=== PATIENT | female | born 1965 | race Caucasian/White ===

== ENCOUNTER 2017-09-12 08:49 | Inpatient (IN) | payer MEDICARE, MEDICAID ==
[2017-09-07 11:38] LABS: BASOPHILS % (AUTO) 0.8 % (0-1); EOSINOPHILS # (AUTO) 0.1 X10'3 (0-0.9); EOSINOPHILS % (AUTO) 2.3 % (0-6); LYMPHOCYTES # (AUTO) 1.8 X10'3 (1.1-4.8); LYMPHOCYTES % (AUTO) 33.3 % (21-51); MEAN CORPUSCULAR HEMOGLOBIN 29.8 PG (27.0-31.0); MEAN CORPUSCULAR HGB CONC 34.8 % (33.0-36.5); MEAN CORPUSCULAR VOLUME 85.5 FL (78-98); MONOCYTES # (AUTO) 0.5 X10'3 (0-0.9); MONOCYTES % (AUTO) 8.5 % (2-12); NEUTROPHILS % (AUTO) 55.1 % (42-75); PRE OP HEMOGLOBIN 13.6 g/dL (12.0-16.0); PRE OP PLATELET COUNT 243 X10'3 (140-440); RED BLOOD COUNT 4.56 X10'6 (4.20-5.60); RED CELL DISTRIBUTION WIDTH 13.3 % (11.5-14.5)
[2017-09-07 11:54] LABS: ALBUMIN 3.2 G/DL (3.4-5.0); ALBUMIN/GLOBULIN RATIO 0.8 (1.1-1.5); ALKALINE PHOSPHATASE 108 IU/L (46-116); BLOOD UREA NITROGEN 7 MG/DL (7-18); BUN/CREATININE RATIO 10.8 (6.6-38.0); CALCIUM 8.4 MG/DL (8.5-10.1); CHLORIDE 107 MMOL/L (99-107); CREATININE 0.65 MG/DL (0.40-0.90); PRE OP ALT 25 U/L (30-65); PRE OP ANION GAP 9 (8-16); PRE OP AST 23 U/L (10-37); PRE OP BILIRUB, TOTAL 0.6 MG/DL (0.0-1.0); PRE OP GLUCOSE 99 MG/DL (70-104); PRE OP POTASSIUM 3.7 MMOL/L (3.4-5.1); PRE OP SODIUM 143 MMOL/L (135-145); TOTAL CARBON DIOXIDE 27.2 MMOL/L (24-32); TOTAL PROTEIN 7.1 G/DL (6.4-8.2); eGFR > 90 ML/MIN
[2017-09-12] VITALS (17 sets, daily range): BP systolic 76–140; BP diastolic 40–84
[~2017-09-12] VITALS: Ht 157.5 cm; Wt 107.0 kg
[~2017-09-12 08:49] MED LIST: ATOR10TA70 PO; BISA5TAB10 PO; BUPR300T7 PO; CALC-437 PO; CARI-1 PO; CHOL100025 PO; Cefazolin 2GM/50ML dext iso,osmotic IVPB IV ONE; FERR325T29 PO; HYDR-3973 PO; MULT1TAB74 PO; NAPR-996 PO; OMEP40CA37 PO; TRAZ-143 PO; famotidine 20mg tablet PO ONE; ringers solution, lacted 1,000 ML IV SCH; tranexamic acid inj. 1,000 MG in normal saline 100ml IV soln 90 ML IV ONE; vancomycin inj 1,500 MG in normal saline 300ml IV soln IV ONE
[2017-09-12] MEDS ORDERED: ceFAZolin 1000mg inj ONE (08:55)
[2017-09-12] MEDS ORDERED: tetracaine 1% (10mg/ml) pres. free inj. ONE (10:15)
[2017-09-12] MEDS ORDERED: ROPIVAcaine 0.5% (5mg/ml) 30ml vial ONE (10:15)
[2017-09-12] MEDS ORDERED: fentaNYL/PF 50MCG/1 ML 2ML syringe ONE (10:16)
[2017-09-12] MEDS ORDERED: MIDAZolam 1mg/ml 10ml vial ONE (10:16)
[2017-09-12] MEDS ORDERED: dexamethasone sod phosphate 4mg/ml inj. ONE (10:29)
[2017-09-12] MEDS ORDERED: morphine 4 MG/ML inj SYRINge IV PRN ×2 (10:55)
[2017-09-12] MEDS ORDERED: labetalol 20mg/4ml (5mg/ml) syringe IV PRN (10:55)
[2017-09-12] MEDS ORDERED: fentaNYL/PF 50MCG/1 ML 2ML syringe IV PRN ×2 (10:55)
[2017-09-12] MEDS ORDERED: hydrALAZINE 20mg/ml inj. IV PRN (10:55)
[2017-09-12] MEDS ORDERED: ondansetron/PF 4mg/2ml inj IV PRN ×3 (10:55→12:40)
[2017-09-12] MEDS ORDERED: ringers solution, lacted 1,000 ML IV SCH (10:55)
[2017-09-12] MEDS ORDERED: diphenhydrAMINE 50 mg/ml inj IV PRN (11:00)
[2017-09-12] MEDS ORDERED: bisacodyl 10mg suppository rectal RC PRN (12:40)
[2017-09-12] MEDS ORDERED: magnesium hydroxide 30ml (MOM) UD suspension PO PRN (12:40)
[2017-09-12] MEDS ORDERED: acetaminophen 325mg tablet PO PRN (12:40)
[2017-09-12] MEDS ORDERED: HYDROmorphone inj. 0.5 MG/0.5 ML DISP.SYRIN IV PRN (12:40)
[2017-09-12] MEDS ORDERED: diphenhydrAMINE 25mg capsule PO PRN ×2 (12:40)
[2017-09-12] MEDS ORDERED: HYDROcodone/acetaminophen 10/325mg tab PO PRN (12:40)
[2017-09-12] MEDS: bisacodyl 5mg tablet.DR PO SCH ×2 (13:00→20:18)
[2017-09-12] MEDS ORDERED: tranexamic acid inj. 1,000 MG in normal saline 100ml IV soln 100 ML IV ONE (16:00)
[2017-09-12] MEDS: ceFAZolin 1GM/D5W- ADD-VANTAGE 50 ML IV SCH ×2 (16:39→23:42)
[2017-09-12] MEDS: potassium Cl 20mEq in NS 1,000 ML IV SCH (16:39)
[2017-09-12] MEDS: aspirin 325mg tablet PO SCH (17:30)
[2017-09-12] MEDS ORDERED: vancomycin/NS 1 GM ADD-VANTAGE 250 ML IV SCH (20:00)
[2017-09-12] MEDS: traZODone 50mg tablet PO SCH (20:17)
[2017-09-12] MEDS: sennosides 8.6mg tablet PO SCH (20:18)
[2017-09-13 02:00] VITALS: BP 107/62
[2017-09-13] MEDS: potassium Cl 20mEq in NS 1,000 ML IV SCH ×3 (05:04→18:34)
[2017-09-13] MEDS: HYDROcodone/acetaminophen 10/325mg tab PO PRN ×4 (05:09→23:52)
[2017-09-13 05:58] LABS: BASOPHILS % (AUTO) 0 % (0-1); EOSINOPHILS % (AUTO) 0 % (0-6); HEMATOCRIT 33.7 % (35.0-45.0); HEMOGLOBIN 11.4 g/dl (12.0-16.0); LYMPHOCYTES % (AUTO) 11.4 % (21-51); MEAN CORPUSCULAR HEMOGLOBIN 29.5 PG (27.0-31.0); MEAN CORPUSCULAR HGB CONC 33.9 % (33.0-36.5); MEAN CORPUSCULAR VOLUME 86.9 FL (78-98); MEAN PLATELET VOLUME 8.5 FL (7.4-10.4); NEUTROPHILS # (AUTO) 7.1 X10'3 (1.8-7.7); NEUTROPHILS % (AUTO) 77.6 % (42-75); PLATELET COUNT 197 X10'3 (140-440); RED BLOOD COUNT 3.87 X10'6 (4.20-5.60); RED CELL DISTRIBUTION WIDTH 13.6 % (11.5-14.5); WHITE BLOOD COUNT 9.2 X10'3 (4.5-11.0)
[2017-09-13 06:27] LABS: ALANINE AMINOTRANSFERASE 25 U/L (12-78); ALBUMIN 2.7 G/DL (3.4-5.0); ALBUMIN/GLOBULIN RATIO 0.8 (1.1-1.5); ALKALINE PHOSPHATASE 80 IU/L (46-116); ANION GAP 7 (8-16); ASPARTATE AMINO TRANSFERASE 17 U/L (10-37); BILIRUBIN,TOTAL 0.5 MG/DL (0.1-1.0); BLOOD UREA NITROGEN 15 MG/DL (7-18); BUN/CREATININE RATIO 11.9 (6.6-38.0); CALCIUM 7.6 MG/DL (8.5-10.1); CHLORIDE 105 MMOL/L (99-107); CREATININE 1.26 MG/DL (0.40-0.90); GLUCOSE 134 MG/DL (70-104); POTASSIUM 5.1 MMOL/L (3.5-5.1); SODIUM 136 MMOL/L (135-145); TOTAL CARBON DIOXIDE 23.7 MMOL/L (24-32); TOTAL PROTEIN 6.3 G/DL (6.4-8.2); eGFR 44 ML/MIN
[2017-09-13 07:00] VITALS: BP 92/51
[2017-09-13] MEDS: aspirin 325mg tablet PO SCH ×2 (07:24→16:39)
[2017-09-13] MEDS: bisacodyl 5mg tablet.DR PO SCH ×3 (07:32→20:36)
[2017-09-13] MEDS: buPROPion SR 150mg tablet PO SCH ×2 (07:32→20:36)
[2017-09-13] MEDS: pantoprazole 40mg Tablet.DR PO SCH (07:32)
[2017-09-13 12:32] VITALS: BP 89/58
[2017-09-13 18:00] VITALS: BP 127/76
[2017-09-13] MEDS: traZODone 50mg tablet PO SCH (20:35)
[2017-09-13] MEDS: sennosides 8.6mg tablet PO SCH (20:36)
[2017-09-13 22:00] VITALS: BP 108/62
[2017-09-14 05:00] VITALS: BP 123/67
[2017-09-14 05:25] LABS: BASOPHILS % (AUTO) 0.3 % (0-1); EOSINOPHILS # (AUTO) 0.1 X10'3 (0-0.9); EOSINOPHILS % (AUTO) 1.3 % (0-6); HEMATOCRIT 33.5 % (35.0-45.0); HEMOGLOBIN 11.4 g/dl (12.0-16.0); LYMPHOCYTES # (AUTO) 1.4 X10'3 (1.1-4.8); LYMPHOCYTES % (AUTO) 16.6 % (21-51); MEAN CORPUSCULAR HEMOGLOBIN 29.6 PG (27.0-31.0); MEAN CORPUSCULAR HGB CONC 33.9 % (33.0-36.5); MEAN CORPUSCULAR VOLUME 87.2 FL (78-98); MEAN PLATELET VOLUME 8.5 FL (7.4-10.4); MONOCYTES # (AUTO) 1.4 X10'3 (0-0.9); MONOCYTES % (AUTO) 16.1 % (2-12); NEUTROPHILS # (AUTO) 5.6 X10'3 (1.8-7.7); NEUTROPHILS % (AUTO) 65.7 % (42-75); PLATELET COUNT 178 X10'3 (140-440); RED BLOOD COUNT 3.84 X10'6 (4.20-5.60); RED CELL DISTRIBUTION WIDTH 13.3 % (11.5-14.5); WHITE BLOOD COUNT 8.6 X10'3 (4.5-11.0)
[2017-09-14] MEDS: HYDROcodone/acetaminophen 10/325mg tab PO PRN ×3 (05:32→16:36)
[2017-09-14 06:00] LABS: ALANINE AMINOTRANSFERASE 17 U/L (12-78); ALBUMIN 2.5 G/DL (3.4-5.0); ALBUMIN/GLOBULIN RATIO 0.6 (1.1-1.5); ALKALINE PHOSPHATASE 85 IU/L (46-116); ANION GAP 7 (8-16); ASPARTATE AMINO TRANSFERASE 13 U/L (10-37); BILIRUBIN,TOTAL 0.6 MG/DL (0.1-1.0); BLOOD UREA NITROGEN 10 MG/DL (7-18); BUN/CREATININE RATIO 13.5 (6.6-38.0); CALCIUM 8.2 MG/DL (8.5-10.1); CHLORIDE 105 MMOL/L (99-107); CREATININE 0.74 MG/DL (0.40-0.90); GLUCOSE 117 MG/DL (70-104); POTASSIUM 4.5 MMOL/L (3.5-5.1); SODIUM 137 MMOL/L (135-145); TOTAL CARBON DIOXIDE 24.8 MMOL/L (24-32); TOTAL PROTEIN 6.6 G/DL (6.4-8.2); eGFR 82 ML/MIN
[2017-09-14] MEDS: pantoprazole 40mg Tablet.DR PO SCH (08:00)
[2017-09-14] MEDS: bisacodyl 5mg tablet.DR PO SCH ×3 (08:36→20:29)
[2017-09-14] MEDS: aspirin 325mg tablet PO SCH ×2 (08:36→17:30)
[2017-09-14] MEDS: buPROPion SR 150mg tablet PO SCH ×2 (08:36→20:27)
[2017-09-14] MEDS: sennosides 8.6mg tablet PO SCH (08:36)
[2017-09-14 10:00] VITALS: BP 124/77
[2017-09-14 18:00] VITALS: BP 101/61
[2017-09-14] MEDS ORDERED: aspirin 81mg tab.chew PO SCH (20:25)
[2017-09-14] MEDS: traZODone 50mg tablet PO SCH (20:27)
[2017-09-14 23:00] VITALS: BP 132/68
[2017-09-15] MEDS: HYDROcodone/acetaminophen 10/325mg tab PO PRN ×4 (00:26→13:06)
[2017-09-15 05:32] LABS: BASOPHILS % (AUTO) 0.4 % (0-1); EOSINOPHILS # (AUTO) 0.1 X10'3 (0-0.9); EOSINOPHILS % (AUTO) 1.6 % (0-6); HEMOGLOBIN 11.1 g/dl (12.0-16.0); LYMPHOCYTES # (AUTO) 1.6 X10'3 (1.1-4.8); LYMPHOCYTES % (AUTO) 18.1 % (21-51); MEAN CORPUSCULAR HGB CONC 34.5 % (33.0-36.5); MEAN CORPUSCULAR VOLUME 87.1 FL (78-98); MEAN PLATELET VOLUME 8.6 FL (7.4-10.4); MONOCYTES % (AUTO) 11.7 % (2-12); NEUTROPHILS # (AUTO) 6.1 X10'3 (1.8-7.7); NEUTROPHILS % (AUTO) 68.2 % (42-75); PLATELET COUNT 194 X10'3 (140-440); RED BLOOD COUNT 3.68 X10'6 (4.20-5.60); RED CELL DISTRIBUTION WIDTH 13.8 % (11.5-14.5); WHITE BLOOD COUNT 8.9 X10'3 (4.5-11.0)
[2017-09-15 06:00] VITALS: BP 111/73
[2017-09-15 06:08] LABS: ALANINE AMINOTRANSFERASE 14 U/L (12-78); ALBUMIN 2.4 G/DL (3.4-5.0); ALBUMIN/GLOBULIN RATIO 0.6 (1.1-1.5); ALKALINE PHOSPHATASE 88 IU/L (46-116); ANION GAP 6 (8-16); ASPARTATE AMINO TRANSFERASE 9 U/L (10-37); BILIRUBIN,TOTAL 0.6 MG/DL (0.1-1.0); BLOOD UREA NITROGEN 6 MG/DL (7-18); CALCIUM 8.5 MG/DL (8.5-10.1); CHLORIDE 104 MMOL/L (99-107); CREATININE 0.75 MG/DL (0.40-0.90); GLUCOSE 108 MG/DL (70-104); POTASSIUM 4.2 MMOL/L (3.5-5.1); SODIUM 139 MMOL/L (135-145); TOTAL CARBON DIOXIDE 28.7 MMOL/L (24-32); TOTAL PROTEIN 6.7 G/DL (6.4-8.2); eGFR 81 ML/MIN
[2017-09-15] MEDS: bisacodyl 5mg tablet.DR PO SCH ×2 (07:18→13:06)
[2017-09-15] MEDS: pantoprazole 40mg Tablet.DR PO SCH (07:18)
[2017-09-15] MEDS: buPROPion SR 150mg tablet PO SCH (07:19)
[2017-09-15 10:00] VITALS: BP 114/77
== END 2017-09-15 13:15 | DRG 470 ==
LOC: PAS IN 08:49 → EDBD 11:00 → EDSTATUS 11:00 → ORTHO 4S 13:56
PROVIDERS: ADMIT Orthopaedic Surgery; ATTEND Orthopaedic Surgery
PROC: 3E0T3BZ Introduction of Anesthetic Agent into Peripheral Nerves and Plexi, Percutaneous Approach (ICD-10-PCS; 2017-09-12)
PROC: 0SRD0J9 Replacement of Left Knee Joint with Synthetic Substitute, Cemented, Open Approach (ICD-10-PCS; principal; 2017-09-12 10:12)
DX: M17.12 Unilateral primary osteoarthritis, left knee (principal); D62 Acute posthemorrhagic anemia; Z68.41 Body mass index [BMI] 40.0-44.9, adult; E78.5 Hyperlipidemia, unspecified; G47.33 Obstructive sleep apnea (adult) (pediatric); E66.01 Morbid (severe) obesity due to excess calories; K21.9 Gastro-esophageal reflux disease without esophagitis; F32.9 Major depressive disorder, single episode, unspecified; G89.29 Other chronic pain; Z98.84 Bariatric surgery status; Z90.49 Acquired absence of other specified parts of digestive tract; Z91.041 Radiographic dye allergy status; Z91.013 Allergy to seafood; Z91.018 Allergy to other foods; Z79.899 Other long term (current) drug therapy
CPT/HCPCS: 36415; 80053; 85025; 85610; 85730; 86885; 86900; 86901; 86920; 87070; 93005; 97110; 97116; 97162; 97530; A6449; A6454; A7000; C1713; C1758; C1776; J0690; J1100; J2250; J2405; J2795; J3010; J3370; J7030; J7120

== ENCOUNTER 2018-08-03 20:41 | Emergency (ER) | payer MEDICARE, MEDICAID ==
[~2018-08-03] VITALS: Ht 160 cm; Wt 111.2 kg
[~2018-08-03 20:41] MED LIST changes: -ATOR10TA70 PO; -CALC-437 PO; -CARI-1 PO; -CHOL100025 PO; -Cefazolin 2GM/50ML dext iso,osmotic IVPB IV ONE; -FERR325T29 PO; -HYDR-3973 PO; -MULT1TAB74 PO; -NAPR-996 PO; -TRAZ-143 PO; +TRAZ-251 PO; -famotidine 20mg tablet PO ONE; -ringers solution, lacted 1,000 ML IV SCH; -tranexamic acid inj. 1,000 MG in normal saline 100ml IV soln 90 ML IV ONE; -vancomycin inj 1,500 MG in normal saline 300ml IV soln IV ONE
[2018-08-03 20:56] VITALS: BP 119/82
[2018-08-03] MEDS ORDERED: ketorolac tromethamine 15mg/ml inj. IM ONE (21:45)
== END 2018-08-03 22:00 | disposition home or self-care (01) ==
LOC: ER 20:42
DX: L03.011 Cellulitis of right finger (principal); J02.9 Acute pharyngitis, unspecified; G43.909 Migraine, unspecified, not intractable, without status migrainosus; Z98.890 Other specified postprocedural states; Z91.013 Allergy to seafood; Z88.8 Allergy status to other drugs, medicaments and biological substances; Z79.899 Other long term (current) drug therapy
CPT/HCPCS: 96372; 99283; J1885

== ENCOUNTER 2021-06-07 15:01 | Emergency (ER) | payer BC, MEDICAID ==
[~2021-06-07] VITALS: Ht 160 cm; Wt 99.5 kg
[~2021-06-07 15:01] MED LIST changes: +OMEP40CA21 PO; -OMEP40CA37 PO
[2021-06-07 15:18] VITALS: BP 135/83
[2021-06-07] MEDS ORDERED: SULF1TAB45 PO (16:19)
[2021-06-07] MEDS ORDERED: CEPH-585 PO (16:19)
== END 2021-06-07 17:10 | disposition home or self-care (01) ==
LOC: ER 15:02
DX: L03.032 Cellulitis of left toe (principal); M79.675 Pain in left toe(s); L02.612 Cutaneous abscess of left foot; G43.909 Migraine, unspecified, not intractable, without status migrainosus; M19.90 Unspecified osteoarthritis, unspecified site; G89.29 Other chronic pain; Z98.890 Other specified postprocedural states; Z88.8 Allergy status to other drugs, medicaments and biological substances; Z91.013 Allergy to seafood; Z79.2 Long term (current) use of antibiotics; Z79.899 Other long term (current) drug therapy
CPT/HCPCS: 26010; 73630; 99284

== ENCOUNTER 2021-06-19 14:36 | Emergency (ER) | payer BC, MEDICAID ==
[~2021-06-19] VITALS: Ht 160 cm; Wt 113.0 kg
[2021-06-19 14:45] VITALS: BP 134/77
[2021-06-19 15:21] LABS: BASOPHILS # (AUTO) 0.1 X10'3 (0-0.2); BASOPHILS % (AUTO) 0.8 % (0-1); EOSINOPHILS # (AUTO) 0.1 X10'3 (0-0.9); EOSINOPHILS % (AUTO) 1.5 % (0-6); HEMATOCRIT 44.1 % (35.0-45.0); HEMOGLOBIN 14.9 g/dl (12.0-16.0); LYMPHOCYTES # (AUTO) 2.5 X10'3 (1.1-4.8); LYMPHOCYTES % (AUTO) 35.6 % (21-51); MEAN CORPUSCULAR HEMOGLOBIN 29.1 PG (27.0-31.0); MEAN CORPUSCULAR HGB CONC 33.7 g/dL (33.0-36.5); MEAN CORPUSCULAR VOLUME 86.3 FL (78-98); MEAN PLATELET VOLUME 7.8 FL (7.4-10.4); MONOCYTES # (AUTO) 0.5 X10'3 (0-0.9); MONOCYTES % (AUTO) 7.1 % (2-12); NEUTROPHILS # (AUTO) 3.8 X10'3 (1.8-7.7); PLATELET COUNT 348 X10'3 (140-440); RED BLOOD COUNT 5.11 X10'6 (4.20-5.60); RED CELL DISTRIBUTION WIDTH 13.7 % (11.5-14.5)
[2021-06-19 15:34] LABS: ALANINE AMINOTRANSFERASE 19 U/L (12-78); ALBUMIN 3.5 G/DL (3.4-5.0); ALBUMIN/GLOBULIN RATIO 0.8 (1.1-1.5); ALKALINE PHOSPHATASE 99 IU/L (46-116); ANION GAP 9 (8-16); ASPARTATE AMINO TRANSFERASE 18 U/L (10-37); BILIRUBIN,TOTAL 0.5 MG/DL (0.1-1.0); BLOOD UREA NITROGEN 7 MG/DL (7-18); BUN/CREATININE RATIO 8.4 (6.6-38.0); CALCIUM 9.1 MG/DL (8.5-10.1); CHLORIDE 104 MMOL/L (99-107); CREATININE 0.83 MG/DL (0.40-0.90); GLUCOSE 117 MG/DL (70-104); POTASSIUM 3.8 MMOL/L (3.5-5.1); SODIUM 141 MMOL/L (135-145); TOTAL CARBON DIOXIDE 28.4 MMOL/L (24-32); TOTAL PROTEIN 8.1 G/DL (6.4-8.2); eGFR 71 ML/MIN
== END 2021-06-19 19:44 | disposition home or self-care (01) ==
LOC: ER 14:36
DX: B34.9 Viral infection, unspecified (principal); R07.89 Other chest pain; R05.9 Cough, unspecified; G43.909 Migraine, unspecified, not intractable, without status migrainosus; M19.90 Unspecified osteoarthritis, unspecified site; G89.29 Other chronic pain; Z98.890 Other specified postprocedural states; Z91.013 Allergy to seafood; Z79.899 Other long term (current) drug therapy
CPT/HCPCS: 36415; 71045; 80053; 83880; 84484; 85025; 93005; 99285

== ENCOUNTER 2023-01-14 09:28 | Emergency (ER) | payer BC, MEDICAID ==
[~2023-01-14] VITALS: Ht 160 cm; Wt 117.5 kg
[~2023-01-14 09:28] MED LIST changes: +BISA-77 PO; -BISA5TAB10 PO
[2023-01-14 09:56] VITALS: BP 137/82; PULSE 68; RESP 17; TEMP 97.4; O2SAT 99
[2023-01-14 10:01] LABS: BASOPHILS % (AUTO) 0.7 % (0-1); EOSINOPHILS # (AUTO) 0.2 X10'3 (0-0.9); EOSINOPHILS % (AUTO) 2.6 % (0-6); HEMATOCRIT 43.8 % (35.0-45.0); HEMOGLOBIN 14.7 g/dl (12.0-16.0); LYMPHOCYTES # (AUTO) 2.3 X10'3 (1.1-4.8); LYMPHOCYTES % (AUTO) 36.4 % (21-51); MEAN CORPUSCULAR HEMOGLOBIN 28.8 PG (27.0-31.0); MEAN CORPUSCULAR HGB CONC 33.6 g/dL (33.0-36.5); MEAN CORPUSCULAR VOLUME 85.9 FL (78-98); MEAN PLATELET VOLUME 7.6 FL (7.4-10.4); MONOCYTES # (AUTO) 0.6 X10'3 (0-0.9); MONOCYTES % (AUTO) 8.9 % (2-12); NEUTROPHILS # (AUTO) 3.2 X10'3 (1.8-7.7); NEUTROPHILS % (AUTO) 51.4 % (42-75); PLATELET COUNT 303 X10'3 (140-440); RED BLOOD COUNT 5.09 X10'6 (4.20-5.60); RED CELL DISTRIBUTION WIDTH 13.7 % (11.5-14.5); WHITE BLOOD COUNT 6.2 X10'3 (4.5-11.0)
[2023-01-14 10:19] LABS: ALANINE AMINOTRANSFERASE 15 U/L (12-78); ALBUMIN 3.1 G/DL (3.4-5.0); ALBUMIN/GLOBULIN RATIO 0.7 (1.1-1.5); ALKALINE PHOSPHATASE 94 IU/L (46-116); ANION GAP 6 (8-16); ASPARTATE AMINO TRANSFERASE 20 U/L (10-37); BILIRUBIN,TOTAL 0.7 MG/DL (0.1-1.0); BLOOD UREA NITROGEN 7 MG/DL (7-18); BUN/CREATININE RATIO 9.2 (10.0-20.0); CALCIUM 8.9 MG/DL (8.5-10.1); CHLORIDE 103 MMOL/L (99-107); CREATININE 0.76 MG/DL (0.40-0.90); GLUCOSE 109 MG/DL (70-104); POTASSIUM 4.1 MMOL/L (3.5-5.1); SODIUM 138 MMOL/L (135-145); TOTAL CARBON DIOXIDE 29.4 MMOL/L (24-32); TOTAL PROTEIN 7.4 G/DL (6.4-8.2); eCRCL 67 ML/MIN; eGFR 78 ML/MIN
[2023-01-14 10:27] LABS: PRO BRAIN NATRIURETIC PEPTIDE 280 PG/ML (0-125)
== END 2023-01-14 15:53 | disposition left against medical advice (07) ==
LOC: ER 09:28
DX: R07.89 Other chest pain (principal); Z53.21 Procedure and treatment not carried out due to patient leaving prior to being seen by health care provider
CPT/HCPCS: 36415; 80053; 83880; 84484; 85025; 93005; 99281

== ENCOUNTER 2025-01-28 23:11 | Emergency (ER) | payer MEDICARE, MEDICAID ==
[~2025-01-28] VITALS: Ht 160 cm; Wt 99.1 kg
[~2025-01-28 23:11] MED LIST changes: +BUPR-559 PO; -BUPR300T7 PO
[2025-01-29] MEDS ORDERED: IBUP-1986 PO (00:45)
[2025-01-29] MEDS ORDERED: AMOX-117 PO (00:45)
--- NOTE | 2025-01-29 00:45 | Physician Documentation ---
HPI ~ General Chief Complaint: Tooth Problem Stated Complaint: FACIAL PAIN Time Seen by MD: 00:36 History of Present Illness HPI Comment This is a 59-year-old female who presents with left lower canine dental pain, patient was seen by primary care and placed on antibiotics and prescribed [place] for pain however she has not had a chance to see her dentist yet, patient reports that she is going in to her dentist tomorrow to wait to be seen on an emergency basis. Patient reports that she has been told by her dentist she must be on antibiotics to be seen as she has a history of knee replacement, she reports she is currently out of the prescribed antibiotic as she ran out earlier today. Patient reports no fevers, chills, or other systemic symptoms and report s no difficulty breathing or swallowing. Patient reports no other acute symptoms or concerns Medication Reconciliation Allergies: Coded Allergies: Iodine and Iodide Containing Produc (Verified Allergy, Unknown, 01/28/25) shellfish derived (Verified Allergy, Unknown, 01/28/25) Scheduled Amox Tr/Potassium Clavulanate (Augmentin 875-125 Tablet), 1 TAB PO Q12H Bisacodyl (Bisacodyl), 5 MG PO TID, (Reported) Bupropion HCl (Bupropion Xl), 300 MG PO DAILY, (Reported) Ibuprofen (Ibuprofen), 1 TAB PO Q8H Omeprazole (Prilosec), 40 MG PO DAILY, (Reported) Trazodone HCl (Trazodone HCl), 100 MG PO HS, (Reported) Past Medical History Past Medical History: Migraine, Arthritis, Chronic Back Pain Past Surgical History: gastric bypass, orthopedic surgeries Alcohol Use: None Drug Use: none Lives In: Home Review of Systems ROS As stated above in the HPI, otherwise all systems are reviewed and negative. Physical Exam Vital Signs: Temperature: 97.7, Source: Oral, Heart Rate: 78, Respiratory Rate: 17, BP: 147/91, Pulse Oximetry: 99, Weight: 99.090 Physical Exam VITALS: Reviewed and as above. GENERAL: Alert, nontoxic appearing, no apparent distress. HEENT: Left lower canine tooth severely decayed, gingiva at base of tooth erythematous without fluctuance, no facial swelling, no submandibular swelling, no elevation of the tongue, no drooling RESPIRATORY: No increased work of breathing, no respiratory distress, speaking in full clear sentences Progress Results/Orders Results/Orders Completed Orders - HIRAM CHAO Ketorolac Trometh 15mg/Ml Vial (Toradol (01/29/25 00:40) Amox Tr/Potassium Clavulanate (Augmentin (01/29/25 00:40) Vital Signs 01/28/25 01/29/25 23:33 01:01 Temp 97.7 98.6 Pulse 78 76 Resp 17 18 B/P (MAP) 147/91 145/89 Pulse Ox 99 99 Medical Decision Making Additional information obtaine: N/A Findings This well appearing 59-year-old female presented with dental pain to the left lower canine tooth. Based on history and physical exam I have low clinical suspicion for peritonsillar abscess, uvulitis, deep tissue space infection of the head/neck, or impending airway compromise. There was no submandibular swelling or elevation of the tongue, the uvula was midline, patient is able to swallow fluids and secretion without difficulty, there is no increased work of breathing or noisy breathing. Remainder of physical exam was benign and patient is hemodynamically stable and otherwise well-appearing and appropriate for outpatient follow up. Based on presentation I am concerned for odontogenic infection and antibiotic treatment with Augmentin is indicated. Differential Dx:Considerations: Include: Alveolar fracture, Alveolar osteitis, ANUG, Facial Cellulitis, Periapical abscess, Peridontal abscess, Pulpitis, Tooth avulsion, Tooth Fracture, Trigeminal neuralgia, Tooth subluxation Departure Time of Disposition: 00:43 Disposition: 01 HOME / SELF CARE / HOMELESS Impression: Primary Impression: Toothache Condition: Improved Discharge Instructions: Dental Pain Additional Instructions: Take antibiotics as prescribed, please see your dentist as soon as possible. Please follow up with your primary care provider in the next few days. Please return to the emergency department for any new or worsening concerning symptoms. Referrals: NO PRIMARY CARE PROVIDER (PCP) Prescriptions Ibuprofen (Ibuprofen) 800 Mg Tablet 1 TAB PO Q8H for pain for 10 Days, #30 TAB 0 Refills Prov: HIRAM CHAO 01/29/25 Amox Tr/Potassium Clavulanate (Augmentin 875-125 Tablet) 1 Each Tablet 1 TAB PO Q12H for 7 Days, #14 TAB Prov: HIRAM CHAO 01/29/25 Education Educated: Patient Educated regarding: diagnosis, treatment, prognosis, need for follow up Signature Scribe Signature: No scribe Attestation: The note accurately reflects work and decisions made by me.UMBERTO Campos 01/29/25 00:45 HIRAM CHAO Jan 29, 2025 00:45
[2025-01-29] MEDS: ketorolac trometh 15mg/ml vial 15 MG/ML ML IM ONE (00:55)
[2025-01-29] MEDS: amox tr/potassium clavulanate 875/125mg TAB PO ONE (00:55)
[2025-01-29 01:01] VITALS: BP 145/89; PULSE 76; RESP 18; TEMP 98.6; O2SAT 99
== END 2025-01-29 01:02 | disposition home or self-care (01) ==
LOC: ER 23:12
DX: K08.89 Other specified disorders of teeth and supporting structures (principal); M19.90 Unspecified osteoarthritis, unspecified site; Z88.8 Allergy status to other drugs, medicaments and biological substances; Z91.013 Allergy to seafood; Z98.84 Bariatric surgery status
CPT/HCPCS: 96372; 99283; J1885